=== PATIENT | female | born 1960 | race African-American/Black ===

== ENCOUNTER 2021-06-01 00:06 | Emergency (ER) | payer OTHER, SELFPAY ==
--- NOTE | ~2021-06-01 | XR_ITS ---
XR chest 1V portable DATE: 06/01/2021 00:59 INDICATION: Shortness of breath TECHNIQUE: Portable upright AP chest on 06/11/2021 at 0049 hours COMPARISON: None FINDINGS: Heart size is normal. Is aortic calcification and mild unfolding. No hilar or mediastinal e nlargement. There is mild bibasilar infiltrate and/atelectasis. No pulmonary infiltrate or consolidation, pleural effusion or pulmonary vascular congestion or pneumothorax is noted otherwise. IMPRESSION: Mild bibasilar infiltrate and/atelectasis Reviewed, dictated and finalized at location A.
[2021-06-01 00:25] VITALS: BP 148/94; PULSE 117; RESP 24; TEMP 37.1; O2SAT 97
[2021-06-01 00:30] VITALS: O2SAT 100
--- NOTE | 2021-06-01 00:34 | ECG_ITS ---
Measurements Intervals [place] Rate: 105 P: 52 IL: 141 QRS: -30 QRSD: 102 T: 64 QT: 348 QTc: 460 Interpretive Statements SINUS TACHYCARDIA VOLTAGE CRITERIA FOR LVH BORDERLINE T WAVE ABNORMALITY- INF/LAT LEADS ABNORMAL ECG Electronically Signed On 06-01-2021 7:12:09 CDT by Alex Miller D.O.
--- NOTE | 2021-06-01 01:04 | ED.GENADULT ---
HPI - General Adult General Chief complaint: Upper Respiratory Infection Stated complaint: I think I have COVID. Time Seen by Provider: 06/01/21 00:25 History of Present Illness HPI narrative: Patient is a 61-year-old female presents the emergency department with chief complaint of I think I have Covid. Patient states that for the last week she has had a cough reports that she has had some body aches and headaches with it as well. Patient states that time she has some tightness in her chest and also has some discomfort in her chest. Patient states she is had some fevers with this as well. Patient states that she is felt a little short of breath with it as well. Patient reports has not been vaccinated for Covid and has not previously had Covid. Related Data Allergies Allergy/AdvReac Type Severity Reaction Status Date / Time No Known Allergies Allergy Unverified 09/03/15 03:15 Review of Systems Review of Systems: A 10 system review of systems was completed on the patient and is negative except for what is stated in the HPI. Nursing and ancillary documentation was reviewed. Exam Narrative: GENERAL: Well-appearing, well-nourished, and in no acute distress. HEAD: Normocephalic, atraumatic. EYES: PERRLA and EOMI. ENT: Nares clear, no rhinorrhea or epistaxis. Mucous membranes moist. NECK: Supple. CHEST: Clear to auscultation. No respiratory distress. HEART: Regular rate and rhythm. No murmur heard. Normal peripheral pulses. ABDOMEN: Soft, nontender, nondistended, normal active bowel sounds. EXTREMITIES: Normal range of motion. No edema. SKIN: Warm, dry, no rash. NEURO: No focal deficits. Alert and oriented x3. PSYCH: Normal mood and affect. Course Vital Signs Vital signs: Vital Signs Temperature 37.1 C 06/01/21 00:25 Pulse Rate 117 H 06/01/21 00:25 Respiratory Rate 24 H 06/01/21 00:25 Blood Pressure 148/94 H 06/01/21 00:25 Pulse Oximetry 97 06/01/21 00:25 Temperature 37.1 C 06/01/21 00:25 Pulse Rate 117 H 06/01/21 00:25 Respiratory Rate 24 H 06/01/21 00:25 Blood Pressure 148/94 H 06/01/21 00:25 Pulse Oximetry 97 06/01/21 00:25 Medical Decision Making Vital Signs Vital Signs: Vital Signs Temperature 37.1 C 06/01/21 00:25 Pulse Rate 117 H 06/01/21 00:25 Respiratory Rate 24 H 06/01/21 00:25 Blood Pressure 148/94 H 06/01/21 00:25 Pulse Oximetry 97 06/01/21 00:25 Temperature 37.1 C 06/01/21 00:25 Pulse Rate 117 H 06/01/21 00:25 Respiratory Rate 24 H 06/01/21 00:25 Blood Pressure 148/94 H 06/01/21 00:25 Pulse Oximetry 97 06/01/21 00:25 Lab Data Labs: Lab Results 06/01/21 Range/Units 00:45 SARS-CoV-2 RNA (RT-PCR) Pending Influenza A Screen Negative Reference Range: Negative Influenza B Screen Negative Reference Range: Negative Discharge Plan Discharge Clinical Impression: Upper respiratory infection Qualifiers: URI type: unspecified viral URI Qualified Code(s): J06.9 - Acute upper respiratory infection, unspecified Patient Disposition: Home, Self-Care Condition: Stable Instructions: Antibiotic Form, Upper Respiratory Infection (ED), COVID-19 (Coronavirus Disease 2019) (ED), How to Recover from COVID-19 at Home (ED) Prescriptions: New benzonatate 200 mg capsule 200 mg PO TID PRN (Reason: cough) Qty: 21 RF: 0 Follow-up/Referrals: Urbano,TEE Villela [Primary Care Provider] - Time of Disposition: 01:18
[2021-06-01 01:30] VITALS: BP 120/75; PULSE 110; RESP 20; O2SAT 100
--- NOTE | 2021-06-01 01:35 | PC.NURSE ---
Pt refused benzonatate at this time. States that particular medication makes her cough more.
[2021-06-01 18:06] LABS: SARS-CoV-2 RNA PCR Positive
== END 2021-06-01 01:48 | disposition home or self-care (01) ==
PROVIDERS: Emergency Provider Emergency Medicine; PCP Physician Assistant
DX: U07.1 COVID-19 (principal)
CPT/HCPCS: 71045; 87804; 93005; 99283; C9803; U0003; U0005

== ENCOUNTER 2024-11-05 01:03 | Emergency (ER) | payer BC, MEDICARE, MEDICAID, SELFPAY ==
--- NOTE | ~2024-11-05 | XR_ITS ---
Left ankle Technique: AP, oblique, and lateral views were obtained. Clinical History: Pain Findings: No acute fracture or dislocation is seen. Osseous alignment is anatomic. Ankle mortise and other visualized joint spaces are preserved. Soft tissues are otherwise unremarkable. Impression: Unremarkable left ankle. Reviewed, dictated and finalized at location . Impression: Unremarkable left ankle.
[2024-11-05 01:04] VITALS: BP 149/75; PULSE 98; RESP 18; TEMP 36.6; O2SAT 99
--- OUTSIDE RECORDS SUMMARY | 2024-11-05 01:05 | XMS_ITS | Data Portability ---
Author Organization [place] [facility] [employer], Main Office Address [address] [place] [address] Assessment Encounter Date Assessment Date Assessment LastModified by Organization Details LastModified Time 02/02/2023 02/02/2023 This note is dictated and transcribed by [employer]. Acrobatic Rigger variances may occur. Despite proofreading, typographical errors may occur. judy Not available 02/02/2023 16:25:21 03/05/2023 03/05/2023 This note is dictated and transcribed by [employer]. Acrobatic Rigger variances may occur. Despite proofreading, typographical errors may occur. judy Not available 03/05/2023 10:19:16 Plan of Treatment Reminders Order Date Submit Date Provider Last Modified By Organization Details Last Modified Time Details Appointments None record ed. Lab None record ed. Referral None record ed. Procedures None record ed. Surgeries None record ed. Imaging XR, foot, 3 or more view 023 02/03/20 23 [email or web address] [facility] [place], [facility], [place], [address], 16:28:11 Medication Orders None record ed. Patient TargetsNo targets recorded. Patient Instructions Encounter Date Encounter Id Patient Instructions Last Modified By Organization Details Last Modified Time 02/02/2023 [id number] plantar fasciitis: exercises jbnan Not available 02/02/2023 16:26:31 plantar fasciiti s education jbnan Not available 02/02/2023 16:26:31 Reason for Referral None Reported. Results Created Date Observation Date Name Description Value Unit Range Abnormal Flag Note LastModifiedBy Organization Detail LastModifiedTime 02/15/20 21 02/14/2021 XR, foot, 3 or more view [facility] [address], [place] [address] [employer] workman Name: JELENA GARDNER ion #: [id number] Sex: F : 1959 1 Locati on: RAD Attend ing Physic pernell: RICHIE RBOERT Orderi ng Physic pernell: RICHIE ROBERT Exam Date: 2:53 PM Exam Name: XR FOOT RT 3V+ Admitt ing Diagno sis(es ): RADIOL OGY REPORT - FINAL EXAM: XR FOOT RT 3V+ HISTOR Y: PAIN RT FOOT COMPAR JACK: 2018 TECHNI QUE: Three views of the right foot were perfor med. FINDIN GS: No acute fractu re or disloc ation are identi fied about the right foot. No signif icant degene rative change s. There is note of a healed base of the 5th metata rsal fractu re. A small calcan eal spur is noted. If clinic al sympto ms persis t or worsen , then follow -up x-ray is recomm ended in 5-7 days. Page 1 of 2 [facility] Pérez workman Name: JELENA GARDNER ion #: [id number] Sex: F : 1959 1 Exam Date: 2:53 PM Exam Name: XR FOOT RT 3V+ Admitt ing Diagno sis(es ): IMPRES EULALIA: No acute abnorm ality noted. Create d and electr onical ly signed by: Raf Li ch, DO Signed Date: 3:10 PM (CT) Dictat ed by: Raf Li ch, DO DD: 3:10 PM (CT) DT: 3:10 PM (CT) Page 2 of 2 [id number] [facility] (Imaging) [address] [facility] [place], [address], 10/22/2022 18:21:15 02/03/20 23 XR, foot, 3 or more view No observ ation record ed. [email or web address] [facility] [place] [address], [place], [address], 02/02/2023 16:28:12 Result Notes None recorded. Problems Name Problem SNOMED Code Status Onset Date Resolution Date Notes Provider Name and Address Organization Details Recorded Time Closed fracture of proximal phalanx of lesser toe of left foot 46825309711 897550 Completed 201806/08/2019 Not Available [facility] 3 18:20:00 Closed fracture of proximal phalanx of lesser toe of left foot 43928121115 685224 Completed 201806/08/2019 Not Available [facility] 3 18:20:00 Pain of right ankle joint 15885865211 123119 Active 2020 Not Available [facility] 3 18:20:00 Pneumonia 441462813 Active 2018 Not Available [facility] 3 18:20:00 Headache 21757074 Active 2018 Not Available [facility] 3 18:20:00 Pain in right foot 04921445762 9107 Active 2020 Not Available [facility] 3 18:20:00 Arthritis 9794234 Active 2018 Not Available [facility] 3 18:20:00 Onychomyc osis of toenails 765225197 Active 2020 Not Available [facility] 3 18:20:00 Closed fracture of fifth metatarsa l bone 02112504 Active 2018 Not Available [facility] 3 18:20:00 Noncompli ance with treatment 1080042 Active 2018 Not Available [facility] 3 18:20:00 Plantar fasciitis of right foot 47385271708 082831 Active 2022 Richie Kendall, DPOndina [address] [facility], [facility] [address], [place], [address] , [facility] 3 16:25:26 Peroneal tendiniti s of right lower limb 91633223721 9109 Active 2022 Richie Kendall DPM [address] [facility], [address] [address], [place], [address] , [facility] [employer] [facility] [employer] [facility] 3 16:25:31 Acquired pes planus of right foot 98875533318 9106 Active 2022 Richie Kendall DPM [address] [address], [place], [address] , [employer] [facility] 3 16:25:36 Cigarette smoker 61915969 Active 2022 Richie Kendall DPM [address] [address], [place], [address] , [employer] [facility] [employer] 3 10:19:44 Right Achilles tendiniti s 37725415063 9102 Active 2022 Richie Knedall DPM [address] [address], [place], [address] , [employer] 3 17:06:11 Notes:back/neck problems, jade wel problems Problem Notes None recorded. Procedures Surgical History None recorded. Imaging Results Imaging Date Name Status LastModified by Organiz ation Details LastModified Time 02/14/2021 XR, foot, 3 or more view completed [id number] [facility] (Imaging) [address] [place], [address], 10/22/2022 18:21:15 02/02/2023 XR, foot, 3 or more view completed [email or web address] [facility] [place] [address], [place], [address], 02/02/2023 16:28:12 Procedure Notes None recorded. Medical Equipment None Reported. Medications Name Sig Start Date Stop Date Status Note LastModified by Organization Details LastModified Time losartan 50 mg tablet TAKE 1 TABLET BY MOUTH ONCE DAILY IN THE MORNING FOR 90 DAYS active Not Available Not Available No t Available cyclobenzap rine 10 mg tablet 05/09 completed Not Available Not Available Not Available methocarbam ol 500 mg tablet TAKE 1 TABLET BY MOUTH THREE TIMES DAILY NEEDED FOR MUSCLE SPASM 05/09 completed Not Available Not Available Not Available bupropion HCl SR 150 mg tablet,12 hr sustained-r elease TAKE 1 TABLET BY MOUTH TWICE DAILY WITH MEALS active Not Available Not Available No t Available atorvastati n 20 mg tablet TAKE 1 TABLET BY MOUTH ONCE DAILY AT BEDTIME active Not Available Not Available No t Available azithromyci n 250 mg tablet TAKE 2 TABLETS BY MOUTH ON DAY 1 AND THEN TAKE 1 TABLET BY MOUTH ONCE A DAY ON DAY 2 THROUGH DAY 5 active Not Available Not Available No t Available ibuprofen 800 mg tablet TAKE 1 TABLET BY MOUTH THREE TIMES DAILY WITH MEALS active Not Available Not Available No t Available prednisone 20 mg tablet TAKE 1 TABLET BY MOUTH ONCE DAILY IN THE MORNING FOR 5 DAYS active Not Available Not Available No t Available acetaminoph en 300 mg-codeine 30 mg tablet 05/09 completed Not Available Not Available Not Available acyclovir 400 mg tablet TAKE 1 TABLET BY MOUTH TWICE DAILY active Not Available Not Available No t Available aspirin 81 mg tablet,miguel yed release TAKE 1 TABLET BY MOUTH ONCE DAILY IN THE MORNING FOR 30 DAYS active Not Available Not Available No t Available doxycycline monohydrate 100 mg tablet 05/09 completed Not Available Not Available Not Available tramadol 50 mg tablet TAKE 1 TABLET BY MOUTH TWICE DAILY DIRECTED active Not Available Not Available No t Available citalopram 20 mg tablet active Not Available Not Available Not Available famotidine 20 mg tablet TAKE 1 TABLET BY MOUTH TWICE DAILY WITH MEALS active Not Available Not Available No t Available amlodipine 10 mg tablet TAKE 1 TABLET BY MOUTH ONCE DAILY IN THE MORNING active Not Available Not Available No t Available benzonatate 100 mg capsule 05/09 completed Not Available Not Available Not Available nicotine 21 mg/24 hr daily transdermal patch APPLY 1 PATCH TOPICALLY ONCE DAILY IN THE MORNING active Not Available Not Available No t Available gabapentin 300 mg capsule active Not Available Not Available Not Available mupirocin 2 % topical ointment 05/09 completed Not Available Not Available Not Available ergocalcife rol (vitamin D2) 1,250 mcg (50,000 unit) capsule TAKE 1 CAPSULE BY MOUTH ONCE A WEEK IN THE MORNING active Not Available Not Available No t Available ibuprofen 600 mg tablet TAKE 1 TABLET BY MOUTH THREE TIMES DAILY WITH MEALS FOR 10 DAYS active Not Available Not Available No t Available ketoconazol e 2 % topical cream APPLY TO AFFECTED AREA(S) TOPICALLY TWICE DAILY active Not Available Not Available No t Available Ventolin HFA 90 mcg/actuati on aerosol inhaler INHALE 1 PUFF BY MOUTH 4 TIMES DAILY NEEDED active Not Available Not Available No t Available Symbicort 160 mcg-4.5 mcg/actuati on HFA aerosol inhaler INHALE 2 PUFFS BY MOUTH ONCE DAILY active Not Available Not Available No t Available fluticasone 113 mcg-salmete rol 14 mcg/actuati on breath activated powdr 05/09 completed Not Available Not Available Not Available Vitals Date Recorded Heart rate Systolic blood pressure Diastolic blood pressure Provider Name and Address Organization Details Last Updated DateTime 05/09/2021 91 /min 153 mm[Hg] 97 mm[Hg] Not Available [employer] 10/22/2022 18:19:40 Date Recorded Heart rate Respiratory rate Oxygen saturation Oxygen saturation in Arterial blood by Pulse oximetry Systolic blood pressure Diastolic blood pressure Provider Name and Address Organization Details Last Updated DateTime 3 91 /min 14 /min 98 % 98 % 156 mm[Hg] 94 mm[Hg] [facility] 3 16:03:11 Date Recorded Heart rate Respiratory rate Oxygen saturation Oxygen saturation in Arterial blood by Pulse oximetry Provider Name and Address Organization Details Last Updated DateTime 03/05/2023 78 /min 14 /min 98 % 98 % [facility] 3 10:00:02 Date Recorded Heart rate Respiratory rate Oxygen saturation Oxygen saturation in Arterial blood by Pulse oximetry Systolic blood pressure Diastolic blood pressure Provider Name and Address Organization Details Last Updated DateTime 3 92 /min 14 /min 98 % 98 % 138 mm[Hg] 84 mm[Hg] [facility] 3 15:52:43 Social History None recorded. Functional Status None recorded. Mental Status None recorded. Family History Nothing Reported. Medical History No medical history recorded. Gynecological HistoryNo gynecological history recorded. Obstetrics History GPAL:G 0 P 0 0 0 0 Past Encounters Encounter ID Performer Location Encounter Start Date Encounter Closed Date Diagnosis/Indication Diagnosis SNOMED-CT Code Diagnosis ICD10 Code Diagnosis Note [id number] [facility] [place] [address], [address] [place] [address] 01/17/2021 00:00:00 01/17/2021 11:25:33 [id number] [facility] [place] [address], [address] [place] [address] 02/14/2021 00:00:00 02/14/2021 11:33:41 [id number] [facility] [place] [address], [address] [place] [address] 05/09/2021 00:00:00 05/13/2021 09:24:45 [id number] Richie Kendall DPM [facility] [place] [address] [place] [address] 02/02/2023 15:57:13 02/02/2023 16:32:10 Plantar fasciitis of right foot 2988926285 5307103 M72.2 educated on conditionx -rays reviewed with patient negative for acute fracturest retching exercises dispensedf ollow-up 1 month Peroneal t endinitis of right lower limb 2531347637 85905 M76.71 educated on conditionR ice therapyThi s stretching and icing instructio ns reviewedFo llow-up in 1 month Acquired p es planus of right foot 0663842956 43423 M21.41 recommend [employer] [id number] Richie Kendall DPM [facility] [place] [address] [place] [address] 03/05/2023 09:55:38 03/05/2023 10:34:33 Plantar fasciitis of right foot 1044722593 6519285 M72.2 educated on conditionx -rays reviewed with patient negative for acute fracturest retching exercises dispensedR x physical therapyrec ommend orthoticsf ollow-up 7 weeks Peroneal t endinitis of right lower limb 5386181523 76037 M76.71 as above Cigarette smoker 8965335 7 F17.210 patient courage to discontinu e smokingPat ient to follow-up with PCP for further workup for this issue [id number] Richie Kendall DPM [facility] [place] [address], [address] [place] [address] 04/21/2023 15:48:14 04/21/2023 17:16:12 Plantar fasciitis of right foot 9110681639 7129339 M72.2 educated on conditionx -rays reviewed with patient negative for acute fracturepa tient again educated on supportive shoe gearhas over-the-c ounter orthotics which are helpingstr etching exercises dispensedR x physical therapy finish, has 4 sessions leftfollow -up 1 month Right Achi lles tendinitis 9259450635 02074 M76.61 stretching exercises as above Health Concerns Section Related Observation LastModified by Organization Detai ls LastModified Time None Recorded Concern Status LastModified by Organization Details LastModified Time None Recorded Advance Directives Directive None Recorded Payers Encounter Date Sequence Insurance Name Policy Number Policy Arguello Covered Member ID Arguello Member ID Guarantor Name 02/02/2023 1 [facility] ON OR AFTER 02/21/21 (MEDICAID REPLACEMENT - HMO) Jelena Gardner [id number] Jelena Gardner 03/05/2023 1 [facility] ON OR AFTER 02/21/21 (MEDICAID REPLACEMENT - HMO) Jelena Gardner [id number] Jelena Gardner 04/21/2023 1 [facility] ON OR AFTER 02/21/21 (MEDICAID REPLACEMENT - HMO) Jelena Gardner [id number] Jelena Gardner Notes Date Note Type Note Provider Name and Address Organization Details Recorded Time 03/05/2023 text/html . Patient is a 62-year-old female who returns the office for follow-up on fasciitis of the right foot. Patient states that she also is having pain still along the peroneal tendons. Patient denies any injury. Patient states that she does wear supportive shoe gear but did not obtain any orthotics. Patient states when she is walking she has more pain. Patient states that she is continuing to smoke but denies any open wounds or nonhealing wounds of the foot. Patient denies any intermittent claudication but states she does have cramping when she is sleeping. Patient denies any other pedal complaints. Richie Kendall DPM [address], [address], [place], [address], [employer] 03/05/2023 10:20:07 04/21/2023 text/html . Patient is a 62-year-old female who returns the office for follow-up on pain to the right Achilles and right plantar fascial area. patient has been undergoing physical therapy and states that it has improved. Patient states that she has 4 visits left and she has also obtained orthotics which she states also was helped but she is not wearing supportive shoe gear. Patient has hard shoes which are likely causing continued pain to the heel secondary to the hard rubber sole. Patient denies any other complaints. Richie Kendall DPM [address], [place], [address], [employer] 04/21/2023 17:08:15 OBGyn Episode No OBEpisode recorded.
--- OUTSIDE RECORDS SUMMARY | 2024-11-05 01:05 | XMS_ITS | CONTINUITY OF CARE DOCUMENT ---
Author Name kiki swanson Address Unknown Organization [facility] Address [address] [facility] [address] [place] [address] Phone [phone] Care Team Providers Care Wellfield Technician Name Role Phone Abdirashid ANGLIN, Toniya Unavailable RICKIE VARELA MD Unavailable [phone] RICKIE VARELA MD Unavailable INSURANCE PROVIDERS Payer name Policy type / Coverage type Cristopher red constitution party ID [employer] MEDICAID (2) Medicaid [id number]
--- OUTSIDE RECORDS SUMMARY | 2024-11-05 01:05 | XMS_ITS | Clinical Summary ---
Author Organization [facility] Address [address] [place] [address] Care Team Providers Care Brush Worker Name Role Phone Unavailable Primary Care Provider Unavailabl e Social History Tobacco Use Types Packs/Day Years Used Date Smoking Tobacco: Never Assessed Comments Unknown Sex and Gender Information Value Date Recorded Sex Assigned at Not on file Legal Sex Female 4:35 PM CDT Gender Identity Not on file Sexual Orientation Not on file Plan of Treatment Health Maintenance Due Date Last Done Comments Colorectal Cancer Screening Colonoscopy (10 Years) 1959 Hepatitis C 1977 DTaP, Tdap and Td Vaccines ( 1 - Tdap) 1978 Mammogram Screening 1999 Zoster Vaccines (1 of 2) 2009 COVID-19 Vaccine (2023-2 5 season) 2024 Influenza Adult (#1) 2024 Dexa Scan (General) 2024 Pneumococcal Vaccine: 65+ Ye ars (1 of 1 - PCV) 2024 RSV Immunization or 60+ Years (1 - 1-dose 75+ series) 2034 Meningococcal B Vaccine Aged Out No l onger eligible based on patient's age to complete this topic Meningococcal Vaccine Aged Out No clayton guille eligible based on patient's age to complete this topic Pneumococcal Vaccine: Pediat rics (0 to 5 Years) and At-Risk Patients (6 to 64 Years) Aged Out No longer eligible b ased on patient's age to complete this topic RSV Immunizations Under 20 Months Aged Out No longer eligible based on patient's age to complete this topic Insurance [employer]
--- OUTSIDE RECORDS SUMMARY | 2024-11-05 01:05 | XMS_ITS | Referral Summary ---
Author Organization [facility] Address [address] [place] [address] Care Team Providers Care Cabinet Finisher Name Role Phone Selina Molina MD Primary Care Provider [phone] Source Comments [facility],non-owned Affiliates and Associated Physician Practices is amultiple site organization consisting of ambulatory clinics and hospital sitesin [place], [place], [place] and [place]. This disclosure is being madepursuant to the Care Everywhere program and may not contain all information available regarding this patient. Last updated 18.[facility] Allergies No known active allergies Medications * Be aware that medications may not be up to date on this document. Alwaysverify current medications with the patient. Medication Sig Dispensed Refills Start Date End Date Status amLODIPine (NORVASC) 10 MG tablet TAKE 1 TABLET BY MOUTH ONCE DAILY IN THE MORNING 1 01/20/2019 Active acetaminophen-codeine (TYLENOL #3) 300-30 MG tablet 01/09/2019 Active methocarbamol (ROBAXIN) 500 MG tabletIndications:Chr onic bilateral low back pain with bilateral sciatica Take 1 tablet by mouth 3 times daily as needed for Muscle Spasms 30 tablet 02/16/2019 Active Active Problems Problem Noted Date Diagnosed Date Lumbar radiculopathy Social History Tobacco Use Types Packs/Day Years Used Date Smoking Tobacco: Every Day Smokeless Tobacco: Never Alcohol Use Standard Drinks/Week Comments No 0 (1 standard drink = 0.6 oz pur e alcohol) Sex and Gender Information Value Date Recorded Sex Assigned at Not on file Gender Identity Not on file Sexual Orientation Not on file Last Filed Vital Signs Vital Sign Reading Time Taken Comments Blood Pressure 131/85 02/16/2019 3:02 PM CDT Pulse 105 02/16/2019 3:02 PM CDT Temperature - - Respiratory Rate - - Oxygen Saturation 96% 02/16/2019 3:02 PM CDT Inhaled Oxygen Concentration - - Weight 75.8 kg (167 lb) 02/16/2019 3:02 PM CDT Height 154.9 cm (5' 1 ) 02/16/2019 3:02 PM CDT Body Mass Index 31.55 02/16/2019 3:02 PM CDT Plan of Treatment Not on file Care Teams Cabinet Finisher Relationship Specialty Start Date End Date Selina Molina MD [address] [place] [address] PCP - General 06/28/21
--- OUTSIDE RECORDS SUMMARY | 2024-11-05 01:05 | XMS_ITS | Referral Summary ---
Author Organization [facility] Address [address] [place] [address] Care Team Providers Care Director Of Pupil Personnel Program Name Role Phone Selina Molina MD Primary Care Provide r Encounters Date Type Department Care Team Description 08/09/2024 5:13 PM DIRECTOR OF EXHIBIT DEVELOPMENT - 08/09/2024 11:59 PM DIRECTOR OF EXHIBIT DEVELOPMENT Hospital Encounter [facility] [address] [place] [address] Spinal stenosis, cervical region Discharge Disposition: Discharge to home or self care from Last 3 Months Allergies No known active allergies Medications amLODIPine (NORVASC) 10 mg tablet Take 10 mg by mouth daily Active albuterol HFA (PROVENTIL HFA,VENTOLIN HFA,PROAIR HFA) 90 mcg/actuation inhaler Inhale 2 puffs every 4 (four) hours as needed for wheezing Active budesonide-form oteroL (SYMBICORT) 160-4.5 mcg/actuation inhaler Inhale 2 puffs every 4 (four) hours Rinse mouth with water after use. Do not swallow. Active flaxseed oiL 1,000 mg capsule Take 1,000 mg by mouth daily Pt not sure of dosage Active turmeric 400 mg capsule Take 400 mg by mouth daily Pt not sure of dosage Active ascorbic acid (vitamin C) 1,000 mg tablet Take 2,000 mg by mouth 2 (two) times a day Active HYDROcodone-chris taminophen (NORCO) 5-325 mg per tabletIndicatio ns:Pain Take 1 tablet by mouth every 6 (six) hours as needed for pain 10 tablet 07/10/2021 Active cetirizine (ZyrTEC) 10 mg tablet Take 1 tablet (10 mg total) by mouth daily 30 tablet 01/06/2024 01/06/20 25 Active montelukast (SINGULAIR) 10 mg tablet Take 1 tablet (10 mg total) by mouth nightly 30 tablet 01/06/[address] (PROTONIX) 40 mg EC tablet Take 1 tablet (40 mg total) by mouth daily 30 tablet 05/04/2024 05/04/20 25 Active Active Problems Problem Noted Date Diagnosed Date Pulmonary nodule 05/04/2024 Chronic obstructive pulmonary disease 03/18/2024 Tinnitus of both ears 10/08/2015 Epistaxis 10/08/2015 Chronic rhinitis 10/08/2015 Hypertrophy of nasal turbinates 10/08/2015 Social History Tobacco Use Types Packs/Day Years Used Date Smoking Tobacco: Every Day Cigarettes 1 53.2 Started: 1972 Smokeless Tobacco: Never Tobacco Cessation:Ready to Q uit: No; Counseling Given: Yes AUDIT-C Answer Date Recorded Q1: How often do you have a drink containing alc ohol? Never 07/03/2021 Average Number of Drinks Not on file 021 Frequency of Binge Drinking Not on file 06/24 Personal Safety Answer Date Recorded Getting School Help Needed Not on file 08/21 Comments No Sex and Gender Information Value Date Recorded Sex Assigned at Not on file Legal Sex Female 7:12 AM DIRECTOR OF EXHIBIT DEVELOPMENT Gender Identity Not on file Sexual Orientation Not on file Last Filed Vital Signs Vital Sign Reading Time Taken Comments Blood Pressure 122/68 05/04/2024 3:31 PM CDT Pulse 108 05/04/2024 3:31 PM CDT Temperature 36.3 C (97.4 F) 05/04/2024 3:31 PM CDT Respiratory Rate 18 05/04/2024 3:31 PM CDT Oxygen Saturation 93% 05/04/2024 3:31 PM CDT Inhaled Oxygen Concentration - - Weight 69.9 kg (154 lb) 05/04/2024 3:31 PM CDT Height 154.9 cm (5' 1 ) 05/04/2024 3:31 PM CDT Body Mass Index 29.1 05/04/2024 3:31 PM CDT Plan of Treatment Not on file Medical Devices Implanted Type Area Health Education Assistant Device Identifier Shelf Expiration Date Model / Serial / Lot [id number] Partnership [employer] 13cm Rigid End Bioabsorbable Net Top Sheetmetal Patternmaker Breast Latex Free [id number] - [id number] Implanted:Qty: 1 on 04/30/2023 by Chirs Ramsey MD at [facility] [employer] [id number] 12/30/2023 REMI-IVANIV [id number] / / [id number] Procedures Procedure Name Priority Date/Time Associated Diagnosis Comments CT CERVICAL SPINE WO CONTRAST Schedule Routine, Read Routine (OP Routine) 08/09/2024 5:30 PM DIRECTOR OF EXHIBIT DEVELOPMENT Spinal stenosis, cervical region CT CHEST WO CONTRAST F/U LUNG SCREEN PROTOCOL Routine 08/03/2024 4:31 PM DIRECTOR OF EXHIBIT DEVELOPMENT Pulmonary nodule from Last 3 Months or Most Recently Relevant to Health Maintenance Results * CT Cervical Spine WO Contrast (08/09/2024 5:30 PM DIRECTOR OF EXHIBIT DEVELOPMENT) Anatomical Region Laterality Modality Spine N/A Computed Tomogra phy 08/10/2024 10:2 4 AM DIRECTOR OF EXHIBIT DEVELOPMENT Narrative 08/10/2024 12:20 PM DIRECTOR OF EXHIBIT DEVELOPMENT EXAM DESCRIPTION: CT CERVICAL SPINE WO CONTRAST REASON FOR STUDY: spinal stenosis Pain and pulling to rt side of neck for 1 yr. Worsening. TECHNIQUE: Axial images through the cervical spine with sagittal and coronal reformatted images. Automated exposure control was used as a dose optimization technique for this examination. COMPARISON: 08/03/2024. FINDINGS: HARDWARE: None in the spine. ALIGNMENT: Trace anterolisthesis of C4 on C5, likely degenerative. No acute traumatic spondylolisthesis. CRANIOCERVICAL JUNCTION: No significant abnormality. VERTEBRAE: No acute displaced fracture. Vertebral body heights well-maintained. INTERVERTEBRAL DISCS: Multilevel intervertebral disc height loss. INDIVIDUAL DISC LEVELS: C2-C3: Posterior disc osteophyte complex and uncovertebral joint hypertrophy result in mild spinal canal narrowing. Minimal left neural foraminal narrowing. C3-C4: Posterior disc osteophyte complex and uncovertebral joint hypertrophy result in moderate spinal canal narrowing. Moderate bilateral neural foraminal narrowing. C4-5: Posterior disc osteophyte complex, uncovertebral joint hypertrophy, and facet arthropathy result in mild spinal canal narrowing. Mild bilateral neural foraminal narrowing. C5-6: Posterior disc osteophyte complex, uncovertebral joint hypertrophy, and facet arthropathy result in moderate spinal canal narrowing. Moderate right and mild left neural foraminal narrowing. C6-C7: Posterior disc osteophyte complex and uncovertebral joint hypertrophy result in mybi-ia-fyqsdzhy spinal canal narrowing. Wlbt-pz-ncisexeh bilateral neural foraminal. C7-T1: Degenerative changes without significant spinal canal or neural foraminal narrowing. UPPER THORACIC: Incompletely imaged. No significant osseous spinal stenosis or osseous neural foraminal stenosis. VISUALIZED BRAIN: Incompletely imaged. No definite acute abnormality. LUNG APICES: Minimal biapical pleural-parenchymal scarring. NECK SOFT TISSUES: Carotid atherosclerotic calcifications. OTHER: No other significant findings. IMPRESSION: No acute fracture or traumatic malalignment of the cervical spine. Multilevel cervical spondylosis most pronounced at C3/C4 where there is moderate spinal canal and moderate bilateral neural foraminal narrowing. THIS IS AN ELECTRONICALLY VERIFIED FINAL REPORT 08/10/2024 12:20 PM - Electronically signed by Lewis Durán M.D. NS: NS Report ID: [id number] Reading Location: [id number] Procedure Note Lewis Durán MD - 08/10/2024 EXAM DESCRIPTION: CT CERVICAL SPINE WO CONTRAST REASON FOR STUDY: spinal stenosis Pain and pulling to rt side of neck for 1 yr. Worsening. TECHNIQUE: Axial images through the cervical spine with sagittal andcoronal reformatted images. Automated exposure control was used as a doseoptimization technique for this examination. COMPARISON: 08/03/2024. FINDINGS: HARDWARE: None in the spine. ALIGNMENT: Trace anterolisthesis of C4 on C5, likely degenerative. Noacute traumatic spondylolisthesis. CRANIOCERVICAL JUNCTION: No significant abnormality. VERTEBRAE: No acute displaced fracture. Vertebral body heights well-maintained. INTERVERTEBRAL DISCS: Multilevel intervertebral disc height loss. INDIVIDUAL DISC LEVELS: C2-C3: Posterior disc osteophyte complex and uncovertebral jointhypertrophy result in mild spinal canal narrowing. Minimal left neural foraminal narrowing. C3-C4: Posterior disc osteophyte complex and uncovertebral jointhypertrophy result in moderate spinal canal narrowing. Moderate bilateral neural foraminal narrowing. C4-5: Posterior disc osteophyte complex, uncovertebral joint hypertrophy,and facet arthropathy result in mild spinal canal narrowing. Mild bilateral neural foraminal narrowing. C5-6: Posterior disc osteophyte complex, uncovertebral joint hypertrophy,and facet arthropathy result in moderate spinal canal narrowing. Moderateright and mild left neural foraminal narrowing. C6-C7: Posterior disc osteophyte complex and uncovertebral jointhypertrophy result in fbsb-xc-xefnllte spinal canal narrowing. Csjw-zz-mcpijrrflcvzebtms neural foraminal. C7-T1: Degenerative changes without significant spinal canal or neural foraminal narrowing. UPPER THORACIC: Incompletely imaged. No significant osseous spinalstenosis or osseous neural foraminal stenosis. VISUALIZED BRAIN: Incompletely imaged. No definite acute abnormality. LUNG APICES: Minimal biapical pleural-parenchymal scarring. NECK SOFT TISSUES: Carotid atherosclerotic calcifications. OTHER: No other significant findings. IMPRESSION: No acute fracture or traumatic malalignment of the cervical spine. Multilevel cervical spondylosis most pronounced at C3/C4 where there is moderate spinal canal and moderate bilateral neural foraminal narrowing. THIS IS AN ELECTRONICALLY VERIFIED FINAL REPORT 08/10/2024 12:20 PM - Electronically signed by Lewis Durán M.D. NS: NS Report ID: [id number] Reading Location: [id number] Selina Molina MD IMG CT PROCEDURES Fin al Result * CT Chest WO Contrast F/U Lung Screen Protocol (08/03/2024 4:31 PM DIRECTOR OF EXHIBIT DEVELOPMENT) Anatomical Region Laterality Modality Chest N/A Computed Tomogra phy 08/10/2024 10:1 3 AM DIRECTOR OF EXHIBIT DEVELOPMENT Addenda Addendum by Lewis Durán MD on 08/12/2024 8:37 AM DIRECTOR OF EXHIBIT DEVELOPMENT ADDENDUM: This addendum report supersedes the original report dated 08/10/2024. Lung-RADS category: 2S Recommendation: Low-dose chest CT in 12 months. Return to low-dose screening program. END OF ADDENDUM REPORT THIS IS AN ELECTRONICALLY VERIFIED FINAL REPORT 08/12/2024 8:37 AM Addendum Electronically signed by Lewis Durán M.D. NS: NS Report ID: [id number] Reading Location: [id number] [facility] 08/10/2024 10:24 AM DIRECTOR OF EXHIBIT DEVELOPMENT EXAM DESCRIPTION: CT CHEST WO CONTRAST F/U LUNG SCREEN PROTOCOL REASON FOR STUDY: Cough, 6 mm pulmonary nodules Cough, persistent, 6 mm pulmonary nodules, Pulmonary nodule TECHNIQUE: CT scan of the chest performed without intravenous contrast using helical scanning technique. Reconstructed coronal and sagittal MPR images reviewed. All images stored on PACS. Automated exposure control was used as a dose optimization technique for this examination. COMPARISON: 02/17/2024 REFERENCE: Per ACR white paper recommendations, unless otherwise specified no follow-up imaging is recommended for incidental renal and adrenal lesions per consensus recommendations based on imaging criteria. Further lab evaluation could be pursued based on clinical findings. FINDINGS: The sensitivity for detection of solid visceral lesions is diminished without the use of intravenous contrast. HARDWARE/LINES/TUBES: None. VASCULATURE: Multifocal atherosclerotic changes of the thoracic aorta and its major branches without aneurysm. MEDIASTINUM/HEART: Heart size within normal limits. No significant pericardial effusion. Esophagus is unremarkable. CORONARY ARTERY CALCIFICATION: Multivessel coronary atherosclerotic calcifications. LYMPH NODES: No pathologically enlarged thoracic lymphadenopathy. AIRWAY: Central airways are patent. LUNGS: Background of mild emphysematous changes. Biapical pleural-parenchymal scarring. No focal consolidation, pneumothorax, or pleural effusion. Multiple pulmonary nodules, including: Unchanged triangular shaped 6 mm perifissural nodule along the left oblique fissure likely reflecting fissural lymph node (3; 47). Unchanged 5 mm perifissural nodule along the right oblique fissure which may reflect a fissural lymph node (3; 51). Unchanged 3 mm left lower lobe subpleural pulmonary nodule versus nodular atelectasis (3; 62). Unchanged 4 mm linear right upper lobe pulmonary nodule (3; 27). No definite new suspicious pulmonary nodules. UPPER ABDOMEN: Similar-appearing 1.3 cm left adrenal nodule demonstrating negative Hounsfield attenuation compatible with a benign adenoma. Unchanged right 1.2 cm adrenal nodule with negative attenuation compatible with a benign adenoma. Colonic diverticulosis without acute inflammation. No definite acute abnormality within the visualized abdomen. BONES/SOFT TISSUES: Unchanged partially calcified lobulated nodule within the upper inner quadrant of the right breast measuring 1.4 cm (2; 43). Multilevel degenerative changes of the visualized spine. No aggressive appearing osseous lesions. No acute osseous abnormality. Normal-appearing thyroid. IMPRESSION: Unchanged pulmonary nodules measuring up to 6 mm. No new suspicious pulmonary nodules. Recommend return to low-dose screening protocol. Unchanged partially calcified right breast nodule, likely benign. Recommend correlation with mammography. Additional incidental and chronic findings as above. THIS IS AN ELECTRONICALLY VERIFIED FINAL REPORT 08/10/2024 10:24 AM - Electronically signed by Lewis Durán M.D. NS: NS Report ID: [id number] Reading Location: [id number] Procedure Note Lewis Durán MD - 08/10/2024 EXAM DESCRIPTION: CT CHEST WO CONTRAST F/U LUNG SCREEN PROTOCOL REASON FOR STUDY: Cough, 6 mm pulmonary nodules Cough, persistent, 6 mm pulmonary nodules, Pulmonary nodule TECHNIQUE: CT scan of the chest performed without intravenous contrastusing helical scanning technique. Reconstructed coronal and sagittal MPR images reviewed. All images stored on PACS. Automated exposure control was usedas a dose optimization technique for this examination. COMPARISON: 02/17/2024 REFERENCE: Per ACR white paper recommendations, unless otherwise specifiedno follow-up imaging is recommended for incidental renal and adrenal lesionsper consensus recommendations based on imaging criteria. Further labevaluation could be pursued based on clinical findings. FINDINGS: The sensitivity for detection of solid visceral lesions is diminished without the use of intravenous contrast. HARDWARE/LINES/TUBES: None. VASCULATURE: Multifocal atherosclerotic changes of the thoracic aorta andits major branches without aneurysm. MEDIASTINUM/HEART: Heart size within normal limits. No significant pericardial effusion. Esophagus is unremarkable. CORONARY ARTERY CALCIFICATION: Multivessel coronary atherosclerotic calcifications. LYMPH NODES: No pathologically enlarged thoracic lymphadenopathy. AIRWAY: Central airways are patent. LUNGS: Background of mild emphysematous changes. Biapical pleural-parenchymal scarring. No focal consolidation, pneumothorax, or pleural effusion. Multiple pulmonary nodules, including: Unchangedtriangular shaped 6 mm perifissural nodule along the left oblique fissure likely reflecting fissural lymph node (3; 47). Unchanged 5 mm perifissural nodule along the right oblique fissure whichmay reflect a fissural lymph node (3; 51). Unchanged 3 mm left lower lobe subpleural pulmonary nodule versus nodular atelectasis (3; 62). Unchanged 4 mm linear right upper lobe pulmonary nodule (3; 27). No definite new suspicious pulmonary nodules. UPPER ABDOMEN: Similar-appearing 1.3 cm left adrenal nodule demonstrating negative Hounsfield attenuation compatible with a benign adenoma.Unchanged right 1.2 cm adrenal nodule with negative attenuation compatible with abenign adenoma. Colonic diverticulosis without acute inflammation. No definite acute abnormality within the visualized abdomen. BONES/SOFT TISSUES: Unchanged partially calcified lobulated nodule withinthe upper inner quadrant of the right breast measuring 1.4 cm (2; 43).Multilevel degenerative changes of the visualized spine. No aggressive appearingosseous lesions. No acute osseous abnormality. Normal-appearing thyroid. IMPRESSION: Unchanged pulmonary nodules measuring up to 6 mm. No new suspiciouspulmonary nodules. Recommend return to low-dose screening protocol. Unchanged partially calcified right breast nodule, likely benign.Recommend correlation with mammography. Additional incidental and chronic findings as above. THIS IS AN ELECTRONICALLY VERIFIED FINAL REPORT 08/10/2024 10:24 AM - Electronically signed by Lewis Durán M.D. NS: NS Report ID: [id number] Reading Location: [id number] Meg Abdalla MD IMG CT PROCEDURES Edit ed Result - Final from Last 3 Months or Most Recently Relevant to Health Maintenance Insurance [facility] MEDICARE MEDICARE Care Teams Director Of Pupil Personnel Program Relationship Specialty Start Date End Date Selina Molina MD [address] [place] [id number] PCP - General Family Medicine 07/02/21
--- OUTSIDE RECORDS SUMMARY | 2024-11-05 01:05 | XMS_ITS | Patient Health Summary ---
Author Organization [facility] Address [address] [place] [address] Care Team Providers Care Tour Director Name Role Phone Selina Molina MD Primary Care Provider [phone] Note from [facility],non-owned Affiliates and Associated Physician Practices is amultiple site organization consisting of ambulatory clinics and hospital sitesin [place], [place], [place] and [place]. This disclosure is being madepursuant to the Care Everywhere program and may not contain all information available regarding this patient. Last updated 18.[facility] Allergies No known active allergies Medications * Be aware that medications may not be up to date on this document. Alwaysverify current medications with the patient. * amLODIPine (NORVASC) 10 MG tablet(Started 01/20/2019) TAKE 1 TABLET BY MOUTH ONCE DAILY IN THE MORNING 1 refill left * acetaminophen-codeine (TYLENOL #3) 300-30 MG tablet(Started 01/09/2019) * methocarbamol (ROBAXIN) 500 MG tablet(Started 02/16/2019) Take 1 tablet by mouth 3 times daily as needed for Muscle Spasms Active Problems Problem Noted Date Diagnosed Date [...] Mass Index 31.55 02/16/2019 3:02 PM CDT Care Teams Tour Director Relationship Specialty Start Date End Date Selina Molina MD [address] [place] [address] PCP - General 06/28/21
--- OUTSIDE RECORDS SUMMARY | 2024-11-05 01:05 | XMS_ITS | Clinical Summary ---
Author Organization [facility] Medical Office Building [address] [place] [address] Care Team Providers Care Middle Stitcher Name Role Phone Selina Molina MD Primary Care Provide r Allergies No known active allergies Medications amLODIPine [...] mg total) by mouth daily 30 tablet 11 05/04/2024 05/04/20 25 Active Active Problems Problem Noted Date Diagnosed Date Pulmonary nodule 05/04/2024 Chronic obstructive pulmonary disease 03/18/2024 Tinnitus of both ears 10/08/2015 Epistaxis 10/08/2015 Chronic rhinitis 10/08/2015 Hypertrophy of nasal turbinates 10/08/2015 Encounters Date Type Department Care Team Description 08/09/2024 5:13 PM GENERAL INTERNAL MEDICINE PHYSICIAN - 08/09/2024 11:59 PM GENERAL INTERNAL MEDICINE PHYSICIAN Hospital Encounter [address] [address] Spinal stenosis, cervical region Discharge Disposition: Discharge to home or self care from Last 3 Months Surgical History Surgery Date Site/Laterality Comments LIPOMA RESECTION Surgery Excision Lipomas - (Added by TW Conv) back, shoulder, arm, right breast 2009's CHOLECYSTECTOMY 2010 COLONOSCOPY 2018 BREAST BIOPSY 04/30/2023 Right Medical History Medical History Date Comments Personal history of other me ntal and behavioral disorders History of depression - (Add ed by TW Conv) Personal history of other di seases of the respiratory system History of pulmonary emphyse ma - (Added by TW Conv) Personal history of other di seases of the circulatory system History of hypertension - (A dded by TW Conv) Personal history of other di seases of the respiratory system History of chronic sinusitis - (Added by TW Conv) Obesity Lung disease COPD Pneumonia 2018 Covid Positive on 06/01 not hospitalized Chest pain infrequent, last episode 2 weeks ago Borderline diabetic Arthritis lower back Wears glasses reading IBS (irritable bowel syndrome) Anxiety Depression Teeth missing Social History Tobacco Use Types Packs/Day Years [...] on file Legal Sex Female 7:12 AM GENERAL INTERNAL MEDICINE PHYSICIAN Gender Identity Not on file Sexual Orientation Not on file Obstetrics History Last Filed Vital Signs Vital Sign Reading [...] 05/04/2024 3:31 PM CDT Plan of Treatment Health Maintenance Due Date Last Done Comments Breast Cancer Screening-Mammogram 1959 Cervical Cancer Screening 1959 Colon Cancer Screening-Colonoscopy 1959 Depression Screening 1959 Hepatitis C Screening 1959 Osteoporosis Screening-Bone Density Scan 1959 DTaP/Tdap/Td Vaccine (1 - Tdap) 1970 Hepatitis B Screening 1977 Pneumococcal vaccine 65+ (1 of 2 - PCV) 1978 Zoster Vaccine (1 of 2) 2009 Fall Risk Assessment 07/03/2022 07/03/2021 Influenza Vaccine (#1) 2024 07/20/2020 Well Visit 65+ 2024 Lung Cancer Screening 08/04/2025 08/03/2024, 024 Medical Devices Implanted Type Area Spindle Setter Device Identifier Shelf Expiration Date Model / Serial / Lot [employer] 13cm Rigid End Bioabsorbable Net Top Photocomposing Keyboard Operator Breast Latex Free [id number] - [id number] Implanted:Qty: 1 on 04/30/2023 by Chris Ramsey MD at [facility] [employer] [id number] 12/30/2023 RK-EVIV A-2S-13 / / [id number] Procedures Procedure Name Priority Date/Time Associated Diagnosis Comments CT CERVICAL SPINE WO CONTRAST Schedule Routine, Read Routine (OP Routine) 08/09/2024 5:30 PM GENERAL INTERNAL MEDICINE PHYSICIAN Spinal stenosis, cervical region CT CHEST WO CONTRAST F/U LUNG SCREEN PROTOCOL Routine 08/03/2024 4:31 PM GENERAL INTERNAL MEDICINE PHYSICIAN Pulmonary nodule from Last 3 Months or Most Recently Relevant to Health Maintenance Results * CT Cervical Spine WO Contrast (08/09/2024 5:30 PM GENERAL INTERNAL MEDICINE PHYSICIAN) Anatomical Region Laterality Modality Spine N/A Computed Tomogra phy 08/10/2024 10:2 4 AM GENERAL INTERNAL MEDICINE PHYSICIAN Narrative 08/10/2024 12:20 PM GENERAL INTERNAL MEDICINE PHYSICIAN EXAM DESCRIPTION: CT CERVICAL SPINE WO CONTRAST [...] complex and uncovertebral joint hypertrophy result in rqrd-hr-tzqlklok spinal canal narrowing. Sxui-em-rcbumrkt bilateral neural foraminal. C7-T1: Degenerative changes without [...] Lewis Durán M.D. NS: NS Report ID: [id number] Reading Location: [id number] Procedure Note Lewis Durán MD - 08/10/2024 [...] osteophyte complex and uncovertebral jointhypertrophy result in joob-bo-xkdtouou spinal canal narrowing. Alwd-de-ycrmorgimsiakjztv neural foraminal. C7-T1: Degenerative changes without significant [...] Lewis Durán M.D. NS: NS Report ID: [id number] Reading Location: [id number] [facility] Taty Molina MD IMG CT PROCEDURES Fin al Result * CT Chest WO Contrast F/U Lung Screen Protocol (08/03/2024 4:31 PM GENERAL INTERNAL MEDICINE PHYSICIAN) Anatomical Region Laterality Modality Chest N/A Computed Tomogra phy 08/10/2024 10:1 3 AM GENERAL INTERNAL MEDICINE PHYSICIAN Addenda Addendum by Lewis Durán MD on 08/12/2024 8:37 AM GENERAL INTERNAL MEDICINE PHYSICIAN ADDENDUM: This addendum report supersedes the original report dated 08/10/2024. Lung-RADS category: 2S Recommendation: Low-dose chest CT in 12 months. Return to low-dose screening program. END OF ADDENDUM REPORT THIS IS AN ELECTRONICALLY VERIFIED FINAL REPORT 08/12/2024 8:37 AM Addendum Electronically signed by Lewis Durán M.D. NS: NS Report ID: [id number] Reading Location: [id number] Narrative 08/10/2024 10:24 AM GENERAL INTERNAL MEDICINE PHYSICIAN EXAM DESCRIPTION: CT CHEST WO CONTRAST F/U [...] Lewis Durán M.D. NS: NS Report ID: [id number] Reading Location: [id number] Procedure Note Lewis Durán MD - 08/10/2024 [...] Lewis Durán M.D. NS: NS Report ID: [id number] Reading Location: [place] [address] Meg Abdalla MD IMG CT PROCEDURES Edit ed Result - Final from Last 3 Months or Most Recently Relevant to Health Maintenance Insurance [facility] MEDICARE MEDICARE Care Teams Middle Stitcher Relationship Specialty Start Date End Date Selina Molina MD [address] [place] [id number] PCP - General Family Medicine 07/02/21
--- OUTSIDE RECORDS SUMMARY | 2024-11-05 01:05 | XMS_ITS | Clinical Summary ---
Author Organization [facility] [email or web address] Address [address] [place] [address] Care Team Providers Care Kelp Cutter Name Role Phone Selina Molina MD Primary Care Provider [phone] Source Comments [facility] [email or web address],non-owned Affiliates and Associated Physician Practices is amultiple site organization consisting of ambulatory clinics and hospital sitesin [place], [place], [place] and [place]. This disclosure is being madepursuant to the Care Everywhere program and may not contain all information available regarding this patient. Last updated 18.[facility] [email or web address] Allergies No known active allergies Medications * [...] 02/16/2019 3:02 PM CDT Plan of Treatment Health Maintenance Due Date Last Done Comments BONE DENSITY TESTING 1959 COLOGUARD (AGES 45-75) - COL ON CA SCREENING 1959 COLON MONITORING 1959 COLONOSCOPY - COLON CA SCREENING 1959 CT COLONOGRAPHY - COLON CA SCREENING 1959 Colorectal Cancer Screening 1959 FIT - COLON CA SCREENING 1959 FLEX SIG - COLON CA SCREENING 1959 LIPID TESTING 1959 MAMMOGRAM 1959 PAP SMEAR 1959 HIV SCREENING 1974 HEPATITIS C SCREENING 05/25/1977 DTAP/TDAP/TD VACCINES (1 - Tdap) 1978 PNEUMOCOCCAL VACCINE 50+ (1 of 2 - PCV) 1978 ZOSTER VACCINE (1 of 2) 2009 COVID-19 VACCINE (2023-2 5 season) 2024 INFLUENZA VACCINE (#1) 2024 DEPRESSION SCREENING 08/24/2024 Respiratory Syncytial Virus (RSV) Vaccine Pt: or over 60 yrs (1 - 1-dose 75+ series) 2034 HEPATITIS B VACCINE Aged Out No longe r eligible based on patient's age to complete this topic HIB VACCINE Aged Out No longer eligi ble based on patient's age to complete this topic HPV VACCINE Aged Out No longer eligi ble based on patient's age to complete this topic MENINGOCOCCAL (Group B) VACC INE SHARED DECISION-MAKING Aged Out No longer eligibl e based on patient's age to complete this topic MENINGOCOCCAL GROUPS A/C/Y/W VACCINE Aged Out No longer eligible b ased on patient's age to complete this topic Care Teams Kelp Cutter Relationship Specialty Start Date End Date Selina Molina MD [address] [place] [address] PCP - General 06/28/21
[2024-11-05 05:38] VITALS: BP 147/113; PULSE 86; RESP 16; O2SAT 100
--- OUTSIDE RECORDS SUMMARY | 2024-11-05 07:09 | XMS_ITS | CONTINUITY OF CARE DOCUMENT ---
Author Name kiki swanson Address Unknown Organization [facility] Address [address] [place] [address] Phone [phone] Care Team Providers Care Electrotype Finisher Name Role Phone Abdirashid ANGLIN, Toniya Unavailable RICKIE VARELA MD Unavailable RICKIE VARELA MD Unavailable INSURANCE PROVIDERS Payer name Policy type / Coverage type Cristopher red constitution party ID PH[place] MEDICAID (2) Medicaid [id number]
--- OUTSIDE RECORDS SUMMARY | 2024-11-05 07:09 | XMS_ITS | Clinical Summary ---
Author Organization [facility] Medical Office Building [address] [place] [phone] Care Team Providers Care Mentally Retarded Teacher Name Role Phone Selina Molina MD Primary [...] Department Care Team Description 08/09/2024 5:13 PM ADULT PSYCHIATRIST - 08/09/2024 11:59 PM ADULT PSYCHIATRIST Hospital Encounter [address] [address] Spinal stenosis, cervical region Discharge Disposition: Discharge [...] on file Legal Sex Female 7:12 AM ADULT PSYCHIATRIST Gender Identity Not on file Sexual Orientation [...] 08/03/2024, 024 Medical Devices Implanted Type Area Ferry Captain Device Identifier Shelf Expiration Date Model / Serial / Lot [employer] 13cm Rigid End Bioabsorbable Net Top Supervisor Refractory Products Breast Latex Free Gvwme-Empbw-5t-13 - [id number] Implanted:Qty: 1 on 04/30/2023 by Chris Ramsey MD at [facility] [employer] [id number] 12/30/2023 RK-EVIV A-2S-13 / / [id number] Procedures Procedure Name Priority Date/Time Associated Diagnosis Comments CT CERVICAL SPINE WO CONTRAST Schedule Routine, Read Routine (OP Routine) 08/09/2024 5:30 PM ADULT PSYCHIATRIST Spinal stenosis, cervical region CT CHEST WO CONTRAST F/U LUNG SCREEN PROTOCOL Routine 08/03/2024 4:31 PM ADULT PSYCHIATRIST Pulmonary nodule from Last 3 Months or Most Recently Relevant to Health Maintenance Results * CT Cervical Spine WO Contrast (08/09/2024 5:30 PM ADULT PSYCHIATRIST) Anatomical Region Laterality Modality Spine N/A Computed Tomogra phy 08/10/2024 10:2 4 AM ADULT PSYCHIATRIST Narrative 08/10/2024 12:20 PM ADULT PSYCHIATRIST EXAM DESCRIPTION: CT CERVICAL SPINE WO CONTRAST [...] complex and uncovertebral joint hypertrophy result in krqh-rf-yxnbwcch spinal canal narrowing. Wlms-qq-feoxcqli bilateral neural foraminal. C7-T1: Degenerative changes without [...] Lewis Durán M.D. NS: NS Report ID: [id number] Reading Location: [id number] Procedure Note Lewis Durán MD - 08/10/2024 [...] osteophyte complex and uncovertebral jointhypertrophy result in iwuz-sy-guaxkelc spinal canal narrowing. Ooez-it-ljhzwagfwhqmrkkrg neural foraminal. C7-T1: Degenerative changes without significant [...] Lewis Durán M.D. NS: NS Report ID: [id number] Reading Location: [id number] [facility] Taty Molina MD IMG CT PROCEDURES Fin al Result * CT Chest WO Contrast F/U Lung Screen Protocol (08/03/2024 4:31 PM ADULT PSYCHIATRIST) Anatomical Region Laterality Modality Chest N/A Computed Tomogra phy 08/10/2024 10:1 3 AM ADULT PSYCHIATRIST Addenda Addendum by Lewis Durán MD on 08/12/2024 8:37 AM ADULT PSYCHIATRIST ADDENDUM: This addendum report supersedes the original report dated 08/10/2024. Lung-RADS category: 2S Recommendation: Low-dose chest CT in 12 months. Return to low-dose screening program. END OF ADDENDUM REPORT THIS IS AN ELECTRONICALLY VERIFIED FINAL REPORT 08/12/2024 8:37 AM Addendum Electronically signed by Lewis Durán M.D. NS: NS Report ID: [id number] Reading Location: [id number] Narrative 08/10/2024 10:24 AM ADULT PSYCHIATRIST EXAM DESCRIPTION: CT CHEST WO CONTRAST F/U [...] Lewis Durán M.D. NS: NS Report ID: [id number] Reading Location: [id number] Procedure Note Lewis Durán MD - 08/10/2024 [...] Lewis Durán M.D. NS: NS Report ID: [id number] Reading Location: [place] [address] Meg Abdalla MD IMG CT PROCEDURES Edit ed Result - Final from Last 3 Months or Most Recently Relevant to Health Maintenance Insurance [facility] MEDICARE MEDICARE Care Teams Mentally Retarded Teacher Relationship Specialty Start Date End Date Selina Molina MD [address] [place] [id number] PCP - General Family Medicine 07/02/21
--- OUTSIDE RECORDS SUMMARY | 2024-11-05 07:09 | XMS_ITS | Patient Health Summary ---
Author Organization [facility] Address [address] [place] [address] Care Team Providers Care Keymodule Assembly Supervisor Name Role Phone Selina Molina MD Primary Care Provider Note from [facility],non-owned Affiliates and Associated Physician Practices is amultiple site organization consisting of ambulatory clinics and hospital sitesin [place], [place], [place] and [place]. This disclosure is being madepursuant to the Care Everywhere program and may not contain all information available regarding this patient. Last updated 18.[facility] Allergies No known active allergies Medications * [...] 31.55 02/16/2019 3:02 PM CDT Care Teams Keymodule Assembly Supervisor Relationship Specialty Start Date End Date Selina Molina MD [address] [place] [address] PCP - General 06/28/21
--- OUTSIDE RECORDS SUMMARY | 2024-11-05 07:10 | XMS_ITS | Clinical Summary ---
Author Organization [facility] [employer] Address [address] [place] [address] Care Team Providers Care Elevator Installer Apprentice Name Role Phone Selina Molina MD Primary Care Provider [phone] Source Comments [facility] [employer],non-owned Affiliates and Associated Physician Practices is amultiple site organization consisting of ambulatory clinics and hospital sitesin [place], [place], [place] and [place]. This disclosure is being madepursuant to the Care Everywhere program and may not contain all information available regarding this patient. Last updated 18.[facility] [employer] Allergies No known active allergies Medications * [...] age to complete this topic Care Teams Elevator Installer Apprentice Relationship Specialty Start Date End Date Selina Molina MD [address] [place] [address] PCP - General 06/28/21
--- OUTSIDE RECORDS SUMMARY | 2024-11-05 07:10 | XMS_ITS | Clinical Summary ---
Author Organization [facility] Address [address] [place] [address] Care Team Providers Care Child Care Team Lead Name Role Phone Unavailable Primary Care Provider [...]
--- OUTSIDE RECORDS SUMMARY | 2024-11-05 07:10 | XMS_ITS | Referral Summary ---
Author Organization [facility] Medical Office Building 1 Address [address] [place] [address] Care Team Providers Care Evaluation Assistant Name Role Phone Selina Molina MD Primary Care Provide r Encounters Date Type Department Care Team Description 08/09/2024 5:13 PM CABLE HOOKER - 08/09/2024 11:59 PM CABLE HOOKER Hospital Encounter [facility] [address] [place] [address] Spinal stenosis, cervical region Discharge [...] on file Legal Sex Female 7:12 AM CABLE HOOKER Gender Identity Not on file Sexual Orientation [...] on file Medical Devices Implanted Type Area Drophammer Operator Device Identifier Shelf Expiration Date Model / Serial / Lot [employer] 13cm Rigid End Bioabsorbable Net Top Rolling Down Machine Operator Breast Latex Free Fiuoc-Wnpjt-5j-13 - [id number] Implanted:Qty: 1 on 04/30/2023 by Chris Ramsey MD at [facility] [employer] [id number] 12/30/2023 REMI-IVANIV A-2S-13 / / [id number] Procedures Procedure Name Priority Date/Time Associated Diagnosis Comments CT CERVICAL SPINE WO CONTRAST Schedule Routine, Read Routine (OP Routine) 08/09/2024 5:30 PM CABLE HOOKER Spinal stenosis, cervical region CT CHEST WO CONTRAST F/U LUNG SCREEN PROTOCOL Routine 08/03/2024 4:31 PM CABLE HOOKER Pulmonary nodule from Last 3 Months or Most Recently Relevant to Health Maintenance Results * CT Cervical Spine WO Contrast (08/09/2024 5:30 PM CABLE HOOKER) Anatomical Region Laterality Modality Spine N/A Computed Tomogra phy 08/10/2024 10:2 4 AM CABLE HOOKER Narrative 08/10/2024 12:20 PM CABLE HOOKER EXAM DESCRIPTION: CT CERVICAL SPINE WO CONTRAST [...] complex and uncovertebral joint hypertrophy result in bgag-dg-gkzppuyk spinal canal narrowing. Vlqn-lw-lptdrqhp bilateral neural foraminal. C7-T1: Degenerative changes without [...] Lewis Durán M.D. NS: NS Report ID: [id number] Reading Location: [id number] Procedure Note Lewis Durán MD - 08/10/2024 [...] osteophyte complex and uncovertebral jointhypertrophy result in xmfc-yf-lgwyhbar spinal canal narrowing. Vfuk-gl-xbdvdddvrqzfjkosd neural foraminal. C7-T1: Degenerative changes without significant [...] Lewis Durán M.D. NS: NS Report ID: [id number] Reading Location: [id number] Selina Molina MD IMG CT PROCEDURES Fin al Result * CT Chest WO Contrast F/U Lung Screen Protocol (08/03/2024 4:31 PM CABLE HOOKER) Anatomical Region Laterality Modality Chest N/A Computed Tomogra phy 08/10/2024 10:1 3 AM CABLE HOOKER Addenda Addendum by Lewis Durán MD on 08/12/2024 8:37 AM CABLE HOOKER ADDENDUM: This addendum report supersedes the original report dated 08/10/2024. Lung-RADS category: 2S Recommendation: Low-dose chest CT in 12 months. Return to low-dose screening program. END OF ADDENDUM REPORT THIS IS AN ELECTRONICALLY VERIFIED FINAL REPORT 08/12/2024 8:37 AM Addendum Electronically signed by Lewis Durán M.D. NS: NS Report ID: [id number] Reading Location: [id number] [facility] 08/10/2024 10:24 AM CABLE HOOKER EXAM DESCRIPTION: CT CHEST WO CONTRAST F/U [...] Lewis Durán M.D. NS: NS Report ID: [id number] Reading Location: [id number] Procedure Note Lewis Durán MD - 08/10/2024 [...] Lewis Durán M.D. NS: NS Report ID: [id number] Reading Location: [id number] Meg Abdalla MD IMG CT PROCEDURES Edit ed Result - Final from Last 3 Months or Most Recently Relevant to Health Maintenance Insurance [facility] MEDICARE MEDICARE Care Teams Evaluation Assistant Relationship Specialty Start Date End Date Selina oMlina MD [address] [place] [id number] PCP - General Family Medicine 07/02/21
--- OUTSIDE RECORDS SUMMARY | 2024-11-05 07:10 | XMS_ITS | Referral Summary ---
Author Organization [facility] [employer] Address [address] [place] [address] Care Team Providers Care Manager Resort Name Role Phone Selina Molina MD Primary Care Provider [phone] Source Comments [facility] [employer],non-owned Affiliates and Associated Physician Practices is amultiple site organization consisting of ambulatory clinics and hospital sitesin [place], [place], [place] and [place]. This disclosure is being madepursuant to the Care Everywhere program and may not contain all information available regarding this patient. Last updated 18.[facility] [employer] Allergies No known active allergies Medications * [...] of Treatment Not on file Care Teams Manager Resort Relationship Specialty Start Date End Date Selina Molina MD [address] [place] [phone] PCP - General 06/28/21
--- NOTE | 2024-11-05 07:37 | ED_ITS ---
HPI - General Adult General Chief complaint: Extremity Injury, Lower Stated complaint: L foot swelling/pain Time Seen by Provider: 11/05/24 06:54 History of Present Illness HPI narrative: 64-year-old female presenting to the emergency department for evaluation for left foot pain. Patient states she was at work on Thursday had some cramping of her left foot this persisted through and Thursday. Patient states she does have increased pain with ambulation today. Patient denies any specific incident of fall or injury. Patient does work at [employer] and does work on her feet a lot Related Data Home Medications ?Medication ?Instructions ?Recorded ?Confirmed ?Last Taken ?Type amlodipine 10 mg tablet 10 mg PO DAILY 11/05/24 11/05/24 Unknown History Allergies Allergy/AdvReac Type Severity Reaction Status Date / Time No Known Allergies Allergy Verified 11/05/24 05:28 Review of Systems Review of Systems: All systems reviewed & are unremarkable except as noted in HPI and below Exam Narrative: APPEARANCE: Well appearing, no pain, no distress, well-nourished. HEAD: normocephalic, atraumatic. EYES: PERRLA/EOMI, conjunctivae clear. NOSE: Normal no drainage EARS:TMS clear with good light reflex. THROAT: Pharynx clear, no exudate. NECK: Supple. No adenopathy, no masses. RESPIRATORY: Airway patent, respirations nonlabored. Clear to auscultation bilaterally, no rales, rhonchi, wheezing. CARDIOVASCULAR: Regular rate and rhythm without murmurs rubs or gallops. ABDOMINAL: Soft, nontender, nondistended, normal bowel sounds MUSCULOSKELETAL: Tenderness to left medial ankle and left foot NEURO: Alert. Cranial nerves II through XII intact. Good gait. Good coordination SKIN: Warm, dry. Normal Color Course Vital Signs Vital signs: Vital Signs Temperature 97.8 F 11/05/24 01:04 Pulse Rate 98 11/05/24 01:04 Respiratory Rate 18 11/05/24 01:04 Blood Pressure 149/75 H 11/05/24 01:04 Pulse Oximetry 99 11/05/24 01:04 Oxygen Delivery Room Air 11/05/24 01:04 Temperature 97.8 F 11/05/24 01:04 Pulse Rate 110 H 11/05/24 08:12 Respiratory Rate 16 11/05/24 08:12 Blood Pressure 162/75 H 11/05/24 08:12 Pulse Oximetry 100 11/05/24 08:12 Oxygen Delivery Room Air 11/05/24 01:04 Medical Decision Making MDM Narrative Medical decision making narrative: 64-year-old female presenting to the emergency department for evaluation for left foot left ankle pain. No evidence of cellulitis, no edema, no erythema, patient does have tenderness to medial ankle and dorsum of the left foot. X- rays were negative for acute fractures or dislocations. Patient was provided Tyler wrap for comfort and advised to use crutches for nonweightbearing and have close follow-up with your physicians. Patient was not happy with her care at time of discharge. Patient preferred to have her foot ?frozen . I attempted to explain that this is not a procedure that is done in the emergency department. Patient was advised on supportive care for home and the importance having close follow-up with her physicians. All questions concerns were addressed. Differential Diagnosis Differential Diagnosis: Ankle sprain, ankle fracture, foot sprain, foot fracture, cellulitis Vital Signs Vital Signs: Vital Signs Temperature 97.8 F 11/05/24 01:04 Pulse Rate 98 11/05/24 01:04 Respiratory Rate 18 11/05/24 01:04 Blood Pressure 149/75 H 11/05/24 01:04 Pulse Oximetry 99 11/05/24 01:04 Oxygen Delivery Room Air 11/05/24 01:04 Temperature 97.8 F 11/05/24 01:04 Pulse Rate 110 H 11/05/24 08:12 Respiratory Rate 16 11/05/24 08:12 Blood Pressure 162/75 H 11/05/24 08:12 Pulse Oximetry 100 11/05/24 08:12 Oxygen Delivery Room Air 11/05/24 01:04 Imaging Data Radiologist's impression: Impressions Ankle X-Ray 11/05/24 08:05 Impression: Unremarkable left ankle. Foot X-Ray 11/05/24 08:05 Impression: Unremarkable left foot radiographs. Discharge Plan Discharge Clinical Impression: Ankle sprain and strain Patient Disposition: Home, Self-Care Condition: Stable Instructions: Antibiotic Form, Crutch Instructions (ED), Ankle Strain (ED) Additional Instructions: Tylenol and ibuprofen for pain control. Tyler wrap for comfort, crutches for nonweightbearing on the affected foot and ankle. Have close follow-up with Orthopedics and with your primary care physician. Patient Language: [place] Prescriptions: No Action benzonatate 200 mg capsule 200 mg PO TID PRN (Reason: cough) Qty: 21 0RF amlodipine 10 mg tablet 10 mg PO DAILY Follow-up/Referrals: Urbano,TEE Villela [Primary Care Provider] - Jovi Gonzalez MD [Physician] - Stand Alone Forms: Work/School Release IP
[2024-11-05 08:12] VITALS: BP 162/75; PULSE 110; RESP 16; O2SAT 100
== END 2024-11-05 09:09 | disposition home or self-care (01) ==
PROVIDERS: Emergency Provider Emergency Medicine; PCP Physician Assistant
DX: S93.402A Sprain of unspecified ligament of left ankle, initial encounter (principal); S96.912A Strain of unspecified muscle and tendon at ankle and foot level, left foot, initial encounter; X58.XXXA Exposure to other specified factors, initial encounter
CPT/HCPCS: 73610; 73630; 99283